=== PATIENT | male | born 1970 | race Hispanic/Latino ===

== ENCOUNTER 2021-12-29 11:42 | Emergency (ER) | payer MEDICARE ==
[2021-12-29 11:56] VITALS: BP 133/70
--- NOTE | 2021-12-29 16:17 | XRay Report ---
CHEST 2 VIEWS INDICATION / CLINICAL INFORMATION: Medical Clearance Psych. COMPARISON: None available. FINDINGS: SUPPORT DEVICES: Right Vas-Cath tip overlies the distal SVC HEART / MEDIASTINUM: No significant abnormality. LUNGS / PLEURA: No significant pulmonary or pleural abnormality. No pneumothorax. ADDITIONAL FINDINGS: No significant additional findings. IMPRESSION: 1. No acute findings. Signer Name: Franko Lambert MD Signed: 12/29/2021 4:11 PM Workstation Name: [id number]
--- NOTE | 2021-12-29 16:40 | Emergency Department Report ---
ED General Adult HPI - General Chief complaint: Medical Clearance Stated complaint: BACK PAIN/WOUND Time Seen by Provider: 12/29/21 15:48 Source: family Mode of arrival: Stretcher Limitations: Physical Limitation - History of Present Illness Initial comments: Mr. Peña is a 51-year-old male with history of multiple CVAs with the most recent being 6 months ago leaving him unable to walk presenting with complaint of worsening pain in his back from a pressure wound. States he developed the wound at the rehab facility and was was recently released from there a week and a half ago. He is also a dialysis patient and dialyzes Wednesday and Wednesday. States he was unable to go through with dialysis today due to severe pain. He is currently on tramadol at home which he states has not been controlling his pain. He denies fever, chills. -: This morning Location: back Radiation: non-radiation Severity scale (0 -10): 10 Quality: sharp Consistency: constant Improves with: none Worsens with: none Associated Symptoms: denies other symptoms Treatments Prior to Arrival: other (Tramadol) - Related Data Allergies Allergy/AdvReac Type Severity Reaction Status Date / Time Penicillins Allergy Unknown Verified 12/29/21 11:47 ED Review of Systems ROS: Stated complaint: BACK PAIN/WOUND Other details as noted in HPI ED Past Medical Hx - Past Medical History Hx CVA: Yes Hx Renal Disease: Yes ED Physical Exam - General Limitations: Physical Limitation General appearance: alert, in no apparent distress - Head Head exam: Present: atraumatic, normocephalic - Eye Eye exam: Present: normal appearance, PERRL, EOMI - Respiratory Respiratory exam: Present: normal lung sounds bilaterally. Absent: respiratory distress, wheezes - Cardiovascular Cardiovascular Exam: Present: regular rate, normal rhythm, normal heart sounds - GI/Abdominal GI/Abdominal exam: Present: soft. Absent: distended, tenderness - Rectal Rectal exam: Present: deferred - Back Exam Back exam: Present: other (7 to 8 cm healing sacral wound ) - Neurological Exam Neurological exam: Present: alert, oriented X3, CN II-XII intact - Psychiatric Psychiatric exam: Present: normal affect, normal mood - Skin Skin exam: Present: warm, dry, other (Sacral wound as noted above) ED Course Vital Signs 12/29/21 11:54 Temperature 98.7 F Pulse Rate 84 Respiratory 18 Rate Blood Pressure 133/70 [Left] O2 Sat by Pulse 97 Oximetry ED Medical Decision Making - Lab Data Result diagrams: 12/29/21 16:12 12/29/21 16:12 - Medical Decision Making Patient presenting with complaint of pain related to his sacral decubitus ulcer. He is afebrile. Laboratory evaluation today reveals normal white blood cell count and normal serum potassium. Vital signs are stable. He was given 4 mg of IM morphine. On reassessment he states his pain is resolved. He is stable for discharge home with return precautions. Critical care attestation.: If time is entered above; I have spent that time in minutes in the direct care of this critically ill patient, excluding procedure time. ED Disposition Clinical Impression: Sacral decubitus ulcer Disposition: 01 HOME / SELF CARE / HOMELESS Is pt being admited?: No Does the pt Need Aspirin: No Condition: Stable Instructions: Negative Pressure Wound Therapy Home Guide, Preventing Pressure Injuries Referrals: JD WAN MD [Primary Care Provider] - 3-5 Days Time of Disposition: 19:41 Print Language: LAO
[2021-12-29 16:50] LABS: Basophils % (Auto) 0.4 % (0.0-1.8); Eosinophils # (Auto) 0.1 K/mm3 (0.0-0.4); Eosinophils % (Auto) 1.1 % (0.0-4.3); Hematocrit 33.9 % (35.5-45.6); Hemoglobin 10.4 gm/dl (11.8-15.2); Lymphocytes # (Auto) 1.7 K/mm3 (1.2-5.4); Mean Corpuscular HGB Conc 31 % (32-34); Mean Corpuscular Volume 94 fl (84-94); Monocytes # (Auto) 0.5 K/mm3 (0.0-0.8); Monocytes % (Auto) 4.4 % (0.0-7.3); Platelet Count 266 K/mm3 (140-440); Red Cell Distribution Width 16.8 % (13.2-15.2)
[2021-12-29 17:01] LABS: INR 1.05 (0.87-1.13)
[2021-12-29 17:02] LABS: Partial Thromboplastin Time 38.5 Sec. (24.2-36.6)
[2021-12-29 17:06] LABS: Albumin 2.8 g/dL (3.9-5)
[2021-12-29] MEDS ORDERED: MORPHINE 4 MG/1 ML INJ IM ONE (18:10)
== END 2021-12-29 20:40 | disposition home or self-care (01) ==
LOC: ED 11:42
DX: L89.150 Pressure ulcer of sacral region, unstageable (principal)
CPT/HCPCS: 36415; 71046; 80053; 85025; 85610; 85730; 96372; 99284; J2270

== ENCOUNTER 2022-01-07 19:27 | Emergency (ER) | payer MEDICARE ==
[2022-01-07] MEDS ORDERED: HYDROcodone/ACETAMINOPHEN 10-325MG TAB PO ONE (20:47)
[2022-01-07 21:08] LABS: Basophils % (Auto) 0.5 % (0.0-1.8); Eosinophils # (Auto) 0.3 K/mm3 (0.0-0.4); Eosinophils % (Auto) 3.7 % (0.0-4.3); Hemoglobin 9.4 gm/dl (11.8-15.2); Lymphocytes # (Auto) 1.4 K/mm3 (1.2-5.4); Mean Corpuscular HGB Conc 31 % (32-34); Mean Corpuscular Volume 92 fl (84-94); Monocytes # (Auto) 0.3 K/mm3 (0.0-0.8); Monocytes % (Auto) 3.9 % (0.0-7.3); Platelet Count 208 K/mm3 (140-440); Red Blood Count 3.27 M/mm3 (3.65-5.03); Red Cell Distribution Width 16.7 % (13.2-15.2)
[2022-01-07 21:15] LABS: Calcium 8.6 mg/dL (8.4-10.2)
--- NOTE | 2022-01-07 21:17 | Emergency Department Report ---
HPI - General Chief Complaint: Hyperglycemia Time Seen by Provider: 01/07/22 20:17 - HPI HPI: Room 7 The patient is a 51-year-old male presenting with a chief complaint of hyperglycemia. The patient states earlier today he checked his blood sugar and it read "high." Patient states he has been compliant with all of his medications. Patient states just prior to arrival to the ED he rechecked his blood sugar and it read 326. When asked how he is feeling the patient replies he feels "pretty good." Of note the patient states he has missed his last 2 dialysis sessions secondary to inability to obtain a ride so last time he was dialyzed was 01/02/2022 ED Past Medical Hx - Past Medical History Previous Medical History?: Yes Hx CVA: Yes Hx Renal Disease: Yes - Surgical History Past Surgical History?: No - Family History Family history: no significant - Social History Smoking Status: Never Smoker Substance Use Type: None (Denies illicit drug use) - Medications Home Medications: Home Medications Medication Instructions Recorded Confirmed Last Taken Type traMADoL [Ultram] 50 mg PO Q6HR PRN #7 tablet 01/07/22 Unknown Rx ED Review of Systems ROS: Stated complaint: BLOOD SUGAR HIGH Other details as noted in HPI Constitutional: no symptoms reported Eyes: denies: eye pain ENT: denies: throat pain Respiratory: no symptoms reported Cardiovascular: denies: chest pain Endocrine: other (Hyperglycemia) Gastrointestinal: denies: abdominal pain Genitourinary: denies: dysuria Musculoskeletal: myalgia Neurological: denies: headache Physical Exam - Physical Exam Vital Signs: Vital Signs 01/07/22 01/07/22 19:28 20:35 Temperature 98.9 F Pulse Rate 84 96 H Respiratory 18 19 Rate Blood Pressure 172/89 Blood Pressure 144/78 [Left] O2 Sat by Pulse 98 99 Oximetry Physical Exam: GENERAL: The patient is well-developed well-nourished male lying on stretcher not appearing to be in acute distress. [] HEENT: Normocephalic. Atraumatic. Extraocular motions are intact. Patient has moist mucous membranes. NECK: Supple. Trachea midline CHEST/LUNGS: Clear to auscultation. There is no respiratory distress noted. HEART/CARDIOVASCULAR: Regular. There is no tachycardia. There is no gallop rub or murmur. ABDOMEN: Abdomen is soft, nontender. Patient has normal bowel sounds. There is no abdominal distention. SKIN: There is no diaphoresis. NEURO: The patient is awake, alert, and oriented. The patient is cooperative. The patient has normal speech. GCS 15 MUSCULOSKELETAL: There is no evidence of acute injury. ED Course Vital Signs 01/07/22 01/07/22 19:28 20:35 Temperature 98.9 F Pulse Rate 84 96 H Respiratory 18 19 Rate Blood Pressure 172/89 Blood Pressure 144/78 [Left] O2 Sat by Pulse 98 99 Oximetry ED Medical Decision Making - Lab Data Result diagrams: 01/07/22 20:38 01/07/22 20:38 Laboratory Tests 01/07/22 01/07/22 01/07/22 20:38 20:38 20:38 WBC 7.9 RBC 3.27 L Hgb 9.4 L Hct 30.0 L MCV 92 MCH 29 MCHC 31 L RDW 16.7 H Plt Count 208 Lymph % (Auto) 18.0 [place] % (Auto) 3.9 Eos % (Auto) 3.7 Baso % (Auto) 0.5 Lymph # (Auto) 1.4 [place] # (Auto) 0.3 Eos # (Auto) 0.3 Baso # (Auto) 0.0 Seg Neutrophils % 73.9 H Seg Neutrophils # 5.9 VBG pH 7.335 Sodium 141 Potassium 4.1 Chloride 103.5 Carbon Dioxide 21 L Anion Gap 21 BUN 75 H Creatinine 5.8 H Estimated GFR 10 BUN/Creatinine Ratio 13 Glucose 256 H Calcium 8.6 - Differential Diagnosis Hyperglycemia, DKA, hyperkalemia, uremia Critical care attestation.: If time is entered above; I have spent that time in minutes in the direct care of this critically ill patient, excluding procedure time. ED Disposition Clinical Impression: Hyperglycemia, Chronic leg pain Disposition: HOME / SELF CARE / HOMELESS Is pt being admited?: No Does the pt Need Aspirin: No Condition: Stable Additional Instructions: Return to the emergency department should you develop worsening symptoms, inability to tolerate food or liquids, high fever or any other concerns Prescriptions: traMADoL [Ultram] 50 mg PO Q6HR PRN #7 tablet PRN Reason: Pain Referrals: PRIMARY CARE, [Primary Care Provider] - [facility] Time of Disposition: 22:11
[2022-01-07 23:50] VITALS: BP 137/64
--- NOTE | 2022-01-08 10:34 | Electrocardiograph Report ---
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
== END 2022-01-07 23:45 | disposition home or self-care (01) ==
LOC: ED 19:27
DX: R73.9 Hyperglycemia, unspecified (principal); M79.606 Pain in leg, unspecified; Z86.73 Personal history of transient ischemic attack (TIA), and cerebral infarction without residual deficits
CPT/HCPCS: 36415; 80048; 82805; 82962; 85025; 93005; 99283

== ENCOUNTER 2022-01-18 14:07 | Inpatient (IN) | payer MEDICARE ==
[2022-01-18] MEDS ORDERED: NALOXONE 0.4 MG/1 ML INJ ONE (14:09)
[2022-01-18] MEDS ORDERED: NALOXONE 2 MG/2 ML INJ IV ONE (14:10)
[2022-01-18] MEDS ORDERED: SODIUM CHLORIDE 0.9% 1000 ML 1,000 ML IV ONE (14:10)
[2022-01-18 15:04] LABS: Basophils # (Auto) 0.1 K/mm3 (0.0-0.1); Basophils % (Auto) 0.6 % (0.0-1.8); Eosinophils # (Auto) 0.1 K/mm3 (0.0-0.4); Hematocrit 29.8 % (35.5-45.6); Hemoglobin 9.1 gm/dl (11.8-15.2); Lymphocytes # (Auto) 1.4 K/mm3 (1.2-5.4); Lymphocytes % (Auto) 10.2 % (13.4-35.0); Mean Corpuscular HGB Conc 31 % (32-34); Mean Corpuscular Volume 92 fl (84-94); Monocytes # (Auto) 0.9 K/mm3 (0.0-0.8); Monocytes % (Auto) 6.7 % (0.0-7.3); Platelet Count 397 K/mm3 (140-440); Red Blood Count 3.22 M/mm3 (3.65-5.03); Red Cell Distribution Width 16.2 % (13.2-15.2)
--- NOTE | 2022-01-18 15:22 | History and Physical Report ---
History of Present Illness Chief complaint: Unresponsive History of present illness: 51 YO Male with DM, ESRD on HD(M,W,F), CVA presents to ED for evaluation. Patient is confused and lethargic the time my evaluation is unable to provide detailed history. Patient history provided by EMS staff, ED staff, as well as the patient's who is at bedside and examined me. After arrival the patient was found to be confused and unresponsive this morning shortly after administration of his morning dose of insulin. EMS was notified and upon arrival the patient was found to be in distress and subsequently transported to [facility] for further care and evaluation of the aforementioned symptoms. The patient was seen and evaluated in the emergency department. All lab and imaging studies reviewed. Patient was found to have decreased responsiveness with aspirate in his oropharynx. Patient underwent chest rate and was found to have evidence of pneumonia suspected secondary to aspiration of gastric contents. Patient also found to be hyperglycemic, with metabolic encephalopathy, systemic inflammatory spine syndrome, metabolic acidosis, as well as clinical symptoms consistent with new onset CHF with decompensation. The patient was placed on supplemental oxygen with mild improvement in symptoms and was subsequently placed on BiPAP due to increased work of breathing combined with altered mental status. The patient was admitted to telemetry and initiated on CHF protocol as well as pneumonia protocol. No reports of fever, chills, chest pain, palpitation, adductive cough, trauma, skin rash, recent contact, known exposure to COVID-19. No prior admission for review. All medication listed at time of admission have been reconciled. Advanced care planning conducted in ED. Patient has diminished cognition at time of evaluation but has a positive gag reflex and is able to protect his airway without difficulty. Past History Past Medical History: diabetes, ESRD, stroke Past Surgical History: Other (Dialysis access) Social history: , lives with family Family history: diabetes, hypertension Medications and Allergies Allergies Allergy/AdvReac Type Severity Reaction Status Date / Time Penicillins Allergy Unknown Verified 12/29/21 11:47 Home Medications Medication Instructions Recorded Confirmed Last Taken Type traMADoL [Ultram] 50 mg PO Q6HR PRN #7 tablet 01/07/22 Unknown Rx Review of Systems ROS unobtainable: due to mental status Exam - Constitutional Vitals: Temp Pulse Resp BP Pulse Ox 97.4 F L 68 19 178/74 100 01/18/22 15:06 01/18/22 14:46 01/18/22 14:46 01/18/22 14:46 01/18/22 15:06 General appearance: Present: mild distress - EENT Eyes: Present: PERRL ENT: clear oral mucosa, hearing decreased - Neck Neck: Present: supple, normal ROM - Respiratory Respiratory effort: labored, accessory muscle use Respiratory: bilateral: diminished, rhonchi - Cardiovascular Rhythm: regular Heart Sounds: Present: S1 & S2 - Extremities Extremities: pulses symmetrical Extremity abnormal: edema Peripheral Pulses: within normal limits - Abdominal General gastrointestinal: Present: soft, non-tender, non-distended, normal bowel sounds Male genitourinary: Present: normal - Integumentary Integumentary: Present: clear, dry, clammy - Musculoskeletal Musculoskeletal: generalized weakness - Psychiatric Psychiatric: no appropriate mood/affect, no intact judgment & insight, no memory intact - Neurologic Neurologic: CNII-XII intact, no focal deficits, moves all extremities, no gait normal Results - Labs CBC & Chem 7: 01/18/22 14:35 01/18/22 14:35 Labs: Abnormal lab results 01/18/22 Range/Units 14:35 WBC 13.6 H (4.5-11.0) K/mm3 RBC 3.22 L (3.65-5.03) M/mm3 Hgb 9.1 L (11.8-15.2) gm/dl Hct 29.8 L (35.5-45.6) % MCHC 31 L (32-34) % RDW 16.2 H (13.2-15.2) % Lymph % (Auto) 10.2 L (13.4-35.0) % [place] # (Auto) 0.9 H (0.0-0.8) K/mm3 Seg Neutrophils % 81.5 H (40.0-70.0) % Seg Neutrophils # 11.1 H (1.8-7.7) K/mm3 Assessment and Plan - Patient Problems (1) Aspiration pneumonia Current Visit: Yes Status: Acute Plan to address problem: Pneumonia protocol: Chest x-ray, CBC, CMP, supplemental oxygen, pulse oximetry, nebulizer therapy, IV antibiotic therapy, blood culture. (2) End stage renal disease Current Visit: Yes Status: Acute Plan to address problem: Nephrology team consulted in ED, dialysis as per renal team. Monitor fluid balance, avoid nephrotoxic agents. (3) Metabolic encephalopathy Current Visit: Yes Status: Acute Plan to address problem: CT head, neuro check, supportive care. Aspiration precautions (4) SIRS (systemic inflammatory response syndrome) Current Visit: Yes Status: Acute Plan to address problem: Empiric IV antibiotic therapy, CBC, chest x-ray, urinalysis, IV antibiotic therapy. Repeat CBC in a.m. (5) Hypoglycemia Current Visit: Yes Status: Acute Plan to address problem: Dextrose, serial Accu-Chek, hypoglycemia protocol. (6) Metabolic acidosis Current Visit: Yes Status: Acute Plan to address problem: BNP, supportive care, repeat BMP in AM. (7) Acute decompensated heart failure Current Visit: Yes Status: Acute Plan to address problem: Strict I's/O, monitor urine output every shift, daily weight, afterload reduction, blood pressure control, diuretic therapy, monitor fluid balance, echocardiogram ordered and pending at time of admission. (8) DVT prophylaxis Current Visit: Yes Status: Acute Plan to address problem: SCD to bilateral lower extremities while in bed (9) Advance care planning Current Visit: Yes Status: Acute Plan to address problem: Disease education conducted, care plan discussed, diagnoses discussed, prognosis discussed, patient is full code. Patient knowledges understanding and agreement with care plan, +30 minutes.
[2022-01-18 15:24] LABS: INR 1.07 (0.87-1.13)
[2022-01-18 15:32] LABS: Alanine Aminotransferase 23 units/L (7-56); Albumin 3.1 g/dL (3.9-5); Blood Urea Nitrogen 44 mg/dL (9-20); Calcium 9.3 mg/dL (8.4-10.2); Hemolysis Index 1
[2022-01-18 15:36] LABS: BUN/Creatinine Ratio 10
[2022-01-18] MEDS ORDERED: DEXTROSE 50% IN WATER (25GM) 50 ML SYRINGE IV ONE (15:42)
[2022-01-18] MEDS: DEXTROSE 50% IN WATER (25GM) 50 ML SYRINGE IV ONE ×2 (15:43→17:43)
--- NOTE | 2022-01-18 16:14 | XRay Report ---
CHEST 1 VIEW 01/18/2022 3:03 PM INDICATION / CLINICAL INFORMATION: Dyspnea. COMPARISON: 12/29/2021 FINDINGS: SUPPORT DEVICES: Stable, satisfactory device positioning. HEART / MEDIASTINUM: Stable. LUNGS / PLEURA: Small layering left pleural effusion. Mild left basilar atelectasis. No pneumothorax. ADDITIONAL FINDINGS: No significant additional findings. IMPRESSION: 1. Small layering left pleural effusion. Signer Name: Fidel Bolaños MD Signed: 01/18/2022 4:09 PM Workstation Name: [id number]
--- NOTE | 2022-01-18 16:25 | Cat Scan Report ---
CT HEAD WITHOUT CONTRAST INDICATION / CLINICAL INFORMATION: AMS. TECHNIQUE: All CT scans at this location are performed using CT dose reduction for ALARA by means of automated exposure control. COMPARISON: None available. FINDINGS: There is no acute intracranial hemorrhage, mass effect, or edema. There is mild encephalomalacia jeremiah g an old right frontal approach ventriculostomy catheter. There are multiple tiny bilateral hypodensi ties in the basal ganglia compatible with chronic lacunar infarcts. No hydrocephalus. No extra-axial fluid collection. The lewis-white matter differentiation is preserved. There is moderate mucosal thickening in the maxillary sinuses, ethmoid air cells, and sphenoid sinuse s. No acute orbital abnormality. Calvarium is intact. IMPRESSION: 1. No CT evidence of acute abnormality. 2. Chronic findings as above. Signer Name: Fidel Bolaños MD Signed: 01/18/2022 4:21 PM Workstation Name: [id number]
--- NOTE | 2022-01-18 16:41 | Emergency Department Report ---
ED Altered Mental Status HPI - General Chief Complaint: Altered Mental Status Stated Complaint: AMS Time Seen by Provider: 01/18/22 14:10 Source: EMS Mode of arrival: Stretcher Limitations: Altered Mental Status - History of Present Illness Initial Comments: pt was brought in by EMS , he was found in the back of his van confused and unresponsive, BS was 80 by EMS, pt admit to drug use later on his came in and Per pt Pt had 495 BG this am and was given 15 units of Lantus, 25 units Novolog, then another 12 units of novolog today MD Complaint: altered mental status, decreased responsiveness -: hour(s) Severity: severe Consistency of Symptoms: constant Context: unknown Associated Symptoms: denies: denies other symptoms, chest pain, cough, diaphoresis, fever/chills, headaches - Related Data Previous Rx's Medication Instructions Recorded Last Taken Type traMADoL [Ultram] 50 mg PO Q6HR PRN #7 tablet 01/07/22 Unknown Rx Allergies Allergy/AdvReac Type Severity Reaction Status Date / Time Penicillins Allergy Unknown Verified 12/29/21 11:47 ED Review of Systems ROS: Stated complaint: AMS Other details as noted in HPI Comment: Unobtainable due to pts medical conditions Constitutional: denies: chills, fever Eyes: denies: eye pain, eye discharge, vision change ENT: denies: ear pain, throat pain Respiratory: denies: cough, shortness of breath, wheezing Cardiovascular: denies: chest pain, palpitations Endocrine: no symptoms reported Gastrointestinal: denies: abdominal pain, nausea, diarrhea Genitourinary: denies: urgency, dysuria Musculoskeletal: denies: back pain, joint swelling, arthralgia Skin: denies: rash, lesions Neurological: denies: headache, weakness, paresthesias Psychiatric: denies: anxiety, depression Hematological/Lymphatic: denies: easy bleeding, easy bruising ED Past Medical Hx - Past Medical History Previous Medical History?: Yes Hx CVA: Yes Hx Renal Disease: Yes - Social History Smoking Status: Unknown if ever smoked - Medications Home Medications: Home Medications Medication Instructions Recorded Confirmed Last Taken Type traMADoL [Ultram] 50 mg PO Q6HR PRN #7 tablet 01/07/22 Unknown Rx ED Physical Exam - General Limitations: Altered Mental Status General appearance: lethargic - Head Head exam: Present: atraumatic, normocephalic - ENT ENT exam: Present: mucous membranes moist - Neck Neck exam: Present: normal inspection - Respiratory Respiratory exam: Present: normal lung sounds bilaterally. Absent: respiratory distress - Cardiovascular Cardiovascular Exam: Present: normal rhythm, tachycardia. Absent: systolic murmur, diastolic murmur, rubs, gallop - GI/Abdominal GI/Abdominal exam: Present: soft, normal bowel sounds - Rectal Rectal exam: Present: deferred - Extremities Exam Extremities exam: Present: normal inspection - Back Exam Back exam: Present: normal inspection - Expanded Neurological Exam Expanded Patient oriented to: Absent: person, place Best Eye Response ([place]): (2) open to pain Best Motor Response ([place]): (4) withdraws to pain Best Verbal Response ([place]): (2) incomprehsible sounds [place] Total: 8 - Skin Skin exam: Present: warm, dry, intact, normal color. Absent: rash ED Course Vital Signs 01/18/22 01/18/22 01/18/22 14:39 14:46 15:06 Temperature 97.4 F L Pulse Rate 68 Respiratory 17 19 Rate Blood Pressure 178/74 O2 Sat by Pulse 100 100 Oximetry 01/18/22 01/18/22 01/18/22 15:24 15:30 15:45 Temperature Pulse Rate 69 68 65 Respiratory 15 21 11 L Rate Blood Pressure 145/74 145/74 O2 Sat by Pulse 99 100 100 Oximetry 01/18/22 01/18/22 01/18/22 16:01 16:12 16:15 Temperature Pulse Rate 71 61 Respiratory 13 15 Rate Blood Pressure 123/62 142/69 O2 Sat by Pulse 99 99 100 Oximetry - Lab Data Result diagrams: 01/18/22 14:35 01/18/22 14:35 Lab Results 01/18/22 01/18/22 01/18/22 Range/Units 14:35 14:35 14:35 WBC 13.6 H (4.5-11.0) K/mm3 RBC 3.22 L (3.65-5.03) M/mm3 Hgb 9.1 L (11.8-15.2) gm/dl Hct 29.8 L (35.5-45.6) % MCV 92 (84-94) fl MCH 28 (28-32) pg MCHC 31 L (32-34) % RDW 16.2 H (13.2-15.2) % Plt Count 397 (140-440) K/mm3 Lymph % (Auto) 10.2 L (13.4-35.0) % [place] % (Auto) 6.7 (0.0-7.3) % Eos % (Auto) 1.0 (0.0-4.3) % Baso % (Auto) 0.6 (0.0-1.8) % Lymph # (Auto) 1.4 (1.2-5.4) K/mm3 [place] # (Auto) 0.9 H (0.0-0.8) K/mm3 Eos # (Auto) 0.1 (0.0-0.4) K/mm3 Baso # (Auto) 0.1 (0.0-0.1) K/mm3 Seg Neutrophils % 81.5 H (40.0-70.0) % Seg Neutrophils # 11.1 H (1.8-7.7) K/mm3 PT 15.1 H (12.2-14.9) Sec. INR 1.07 (0.87-1.13) Sodium 144 (137-145) mmol/L Potassium 4.4 (3.6-5.0) mmol/L Chloride 107.5 H (98-107) mmol/L Carbon Dioxide 23 (22-30) mmol/L Anion Gap 18 mmol/L BUN 44 H (9-20) mg/dL Creatinine 4.6 H (0.8-1.3) mg/dL Estimated GFR 13 ml/min BUN/Creatinine Ratio 10 % Glucose 19 L* (75-100) mg/dL Lactic Acid (0.7-2.0) mmol/L Calcium 9.3 (8.4-10.2) mg/dL Total Bilirubin < 0.20 (0.1-1.2) mg/dL AST 35 (5-40) units/L ALT 23 (7-56) units/L Alkaline Phosphatase 196 H (35-129) units/L Ammonia (25-60) umol/L Total Creatine Kinase 102 (55-170) units/L Troponin T 0.410 H* (0.00-0.029) ng/mL NT-Pro-B Natriuret Pep (0-900) pg/mL Total Protein 6.1 L (6.3-8.2) g/dL Albumin 3.1 L (3.9-5) g/dL Albumin/Globulin Ratio 1.0 % Salicylates (2.8-20.0) mg/dL Acetaminophen (10.0-30.0) ug/mL Plasma/Serum Alcohol (0-0.07) % 01/18/22 01/18/22 01/18/22 Range/Units 14:35 14:35 14:35 WBC (4.5-11.0) K/mm3 RBC (3.65-5.03) M/mm3 Hgb (11.8-15.2) gm/dl Hct (35.5-45.6) % MCV (84-94) fl MCH (28-32) pg MCHC (32-34) % RDW (13.2-15.2) % Plt Count (140-440) K/mm3 Lymph % (Auto) (13.4-35.0) % [place] % (Auto) (0.0-7.3) % Eos % (Auto) (0.0-4.3) % Baso % (Auto) (0.0-1.8) % Lymph # (Auto) (1.2-5.4) K/mm3 [place] # (Auto) (0.0-0.8) K/mm3 Eos # (Auto) (0.0-0.4) K/mm3 Baso # (Auto) (0.0-0.1) K/mm3 Seg Neutrophils % (40.0-70.0) % Seg Neutrophils # (1.8-7.7) K/mm3 PT (12.2-14.9) Sec. INR (0.87-1.13) Sodium (137-145) mmol/L Potassium (3.6-5.0) mmol/L Chloride (98-107) mmol/L Carbon Dioxide (22-30) mmol/L Anion Gap mmol/L BUN (9-20) mg/dL Creatinine (0.8-1.3) mg/dL Estimated GFR ml/min BUN/Creatinine Ratio % Glucose (75-100) mg/dL Lactic Acid 1.20 (0.7-2.0) mmol/L Calcium (8.4-10.2) mg/dL Total Bilirubin (0.1-1.2) mg/dL AST (5-40) units/L ALT (7-56) units/L Alkaline Phosphatase (35-129) units/L Ammonia (25-60) umol/L Total Creatine Kinase (55-170) units/L Troponin T (0.00-0.029) ng/mL NT-Pro-B Natriuret Pep (0-900) pg/mL Total Protein (6.3-8.2) g/dL Albumin (3.9-5) g/dL Albumin/Globulin Ratio % Salicylates < 0.3 L (2.8-20.0) mg/dL Acetaminophen 5.0 L (10.0-30.0) ug/mL Plasma/Serum Alcohol (0-0.07) % 01/18/22 01/18/22 01/18/22 Range/Units 14:35 14:35 14:35 WBC (4.5-11.0) K/mm3 RBC (3.65-5.03) M/mm3 Hgb (11.8-15.2) gm/dl Hct (35.5-45.6) % MCV (84-94) fl MCH (28-32) pg MCHC (32-34) % RDW (13.2-15.2) % Plt Count (140-440) K/mm3 Lymph % (Auto) (13.4-35.0) % [place] % (Auto) (0.0-7.3) % Eos % (Auto) (0.0-4.3) % Baso % (Auto) (0.0-1.8) % Lymph # (Auto) (1.2-5.4) K/mm3 [place] # (Auto) (0.0-0.8) K/mm3 Eos # (Auto) (0.0-0.4) K/mm3 Baso # (Auto) (0.0-0.1) K/mm3 Seg Neutrophils % (40.0-70.0) % Seg Neutrophils # (1.8-7.7) K/mm3 PT (12.2-14.9) Sec. INR (0.87-1.13) Sodium (137-145) mmol/L Potassium (3.6-5.0) mmol/L Chloride (98-107) mmol/L Carbon Dioxide (22-30) mmol/L Anion Gap mmol/L BUN (9-20) mg/dL Creatinine (0.8-1.3) mg/dL Estimated GFR ml/min BUN/Creatinine Ratio % Glucose (75-100) mg/dL Lactic Acid (0.7-2.0) mmol/L Calcium (8.4-10.2) mg/dL Total Bilirubin (0.1-1.2) mg/dL AST (5-40) units/L ALT (7-56) units/L Alkaline Phosphatase (35-129) units/L Ammonia 30.0 (25-60) umol/L Total Creatine Kinase (55-170) units/L Troponin T (0.00-0.029) ng/mL NT-Pro-B Natriuret Pep 9594 H (0-900) pg/mL Total Protein (6.3-8.2) g/dL Albumin (3.9-5) g/dL Albumin/Globulin Ratio % Salicylates (2.8-20.0) mg/dL Acetaminophen (10.0-30.0) ug/mL Plasma/Serum Alcohol < 0.01 (0-0.07) % - EKG Data -: EKG Interpreted by Me EKG shows normal: sinus rhythm Rate: normal Interpretation: nonspecific ST-T wave brenda - Radiology Data Radiology results: report reviewed, image reviewed - Medical Decision Making head ct negative , BS was found to be 19 , D 50 given and imrpoved a lot willadmit for obs Critical care attestation.: If time is entered above; I have spent that time in minutes in the direct care of this critically ill patient, excluding procedure time. ED Disposition Clinical Impression: Altered mental status, Hypoglycemia, CRF (chronic renal failure) Disposition: ADMITTED INPATIENT Is pt being admited?: Yes Does the pt Need Aspirin: No Condition: Fair Referrals: JD WAN MD [Primary Care Provider] - 3-5 Days
[2022-01-18] MEDS ORDERED: ALBUTEROL 2.5 MG/3 ML NEBU IH PRN (16:46)
[2022-01-18] MEDS ORDERED: SODIUM CHLORIDE 0.9% 1000 ML 1,000 ML IV SCH (17:00)
[2022-01-18] MEDS: FUROSEMIDE 20 MG/2 ML INJ IV SCH (17:45)
[2022-01-18] MEDS ORDERED: ONDANSETRON 4 MG/2 ML INJ IV PRN (18:00)
[2022-01-18] MEDS ORDERED: ACETAMINOPHEN 325 MG TAB PO PRN (18:00)
[2022-01-18] MEDS ORDERED: DEXTROSE 50% IN WATER (25GM) 50 ML SYRINGE IV PRN (18:12)
[2022-01-18 18:18] LABS: Chol/HDL Ratio 2.18 %; HDL Cholesterol 38 mg/dL (40-59); LDL Cholesterol,Direct 30 mg/dL (50-130)
[2022-01-18 19:57] LABS: Bilirubin,Urine NEG (Negative); Blood,Urine SM (Negative); Color,Urine Straw (Yellow); Urobilinogen,Urine < 2.0 mg/dL (<2.0)
[2022-01-18 20:03] LABS: Amphetamine Screen,Urine PRESUMPTIVE NEGATIVE; Benzodiazepines Screen,Urine PRESUMPTIVE NEGATIVE; Cannabinoid Screen,Urine PRESUMPTIVE NEGATIVE; Cocaine Screen,Urine PRESUMPTIVE NEGATIVE; Methadone Screen,Urine PRESUMPTIVE NEGATIVE; Opiate Screen,Urine PRESUMPTIVE NEGATIVE
[2022-01-18] MEDS: HYDROmorphone 1 MG/1 ML INJ IV PRN (22:28)
[2022-01-19] MEDS: FUROSEMIDE 20 MG/2 ML INJ IV SCH ×2 (05:19→17:44)
--- NOTE | 2022-01-19 08:39 | Progress Note ---
Assessment and Plan Assessment and plan: #Acute metabolic encephalopathy CT head, neuro check, supportive care. Aspiration precautions #Symptomatic hypoglycemia, due to overmedication -BG 16, improved after being given dextrose containing IVF -per patient and he takes lantus 15U QAM and novolin PRN -novolin is over the counter and the give him anywhere from 10-20 units when his glucose is elevated -counseled and patient about proper use of novolin; declined new prescri ption due to cost -accuchecks + hypoglycemia protocol #SIRS (systemic inflammatory response syndrome) -likely secondary to hypoglycemia -HR improved, afebrile -blood cultures collected -d/c rocephijohn #End stage renal disease requiring HD -Plan for dialysis today -Avoid nephrotoxic agents and renally dose medications -Nephrology consulted, assistance appreciated #Normocytic anemia -will transfuse for Hgb less than 7 -continue epogen with dialysis -likely secondary to ESRD #NSTEMI type II -Troponin 0.410 -> 0.406 -no chest pain associated -echo as above -likely secondary to renal function -Cardiology consulted, assistance appreciated #Hyperkalemia -likely secondary to ESRD -will be corrected with K bath during dialysis today -will continue to monitor #Aspiration pneumonia-ruled out -no PNA noted on CXR, will discontinue abx #Metabolic acidosis -likely secondary to ESRD -will continue to monitor through BMP #Heart Failure with preserved ejection fraction -TTE: LVEF 45-50% with diastolic dysfunction -currently not in acute exacerbation -continue home medications, BP control #Advanced care planning -Disease education conducted, care plan discussed, diagnoses discussed, prognosis discussed, and patient acknowledges understanding with care plan -Time: +30 min History Interval history: Patient reports feeling weak but much better after his blood sugar has risen. He denies chest pain, shortness of breath, palpitations. He is currently in the process of moving out of state. He has no complaints at this time. Hospitalist Physical - Physical exam Narrative exam: GENERAL: Thin, malnourished male. In no acute distress. HEENT: Normocephalic. Atraumatic. NECK: Supple. CHEST/LUNGS: R chest permacath. CTAB on room air HEART/CARDIOVASCULAR: RRR. No murmur, rubs or gallops appreciated. ABDOMEN: +BS. NT/ND. SKIN: No rashes noted. NEURO: No focal motor deficit. Follows all commands. MUSCULOSKELETAL: No joint effusion EXTREMITIES: No cyanosis, clubbing or edema. PSYCH: Cooperative. - Constitutional Vitals: Temp Pulse Resp BP Pulse Ox 98.8 F 78 18 121/88 99 01/19/22 04:00 01/19/22 04:00 01/19/22 04:00 01/19/22 04:00 01/19/22 00:03 General appearance: Present: mild distress HEART Score - HEART Score Troponin: Troponin T 0.410 ng/mL (0.00-0.029) H* 01/18/22 14:35 Results - Labs CBC & Chem 7: 01/19/22 07:49 01/19/22 07:49 Labs: Laboratory Last Values WBC 13.6 K/mm3 (4.5-11.0) H 01/18/22 14:35 RBC 3.22 M/mm3 (3.65-5.03) L 01/18/22 14:35 Hgb 9.1 gm/dl (11.8-15.2) L 01/18/22 14:35 Hct 29.8 % (35.5-45.6) L 01/18/22 14:35 MCV 92 fl (84-94) 01/18/22 14:35 MCH 28 pg (28-32) 01/18/22 14:35 MCHC 31 % (32-34) L 01/18/22 14:35 RDW 16.2 % (13.2-15.2) H 01/18/22 14:35 Plt Count 397 K/mm3 (140-440) 01/18/22 14:35 Lymph % (Auto) 10.2 % (13.4-35.0) L 01/18/22 14:35 [place] % (Auto) 6.7 % (0.0-7.3) 01/18/22 14:35 Eos % (Auto) 1.0 % (0.0-4.3) 01/18/22 14:35 Baso % (Auto) 0.6 % (0.0-1.8) 01/18/22 14:35 Lymph # (Auto) 1.4 K/mm3 (1.2-5.4) 01/18/22 14:35 [place] # (Auto) 0.9 K/mm3 (0.0-0.8) H 01/18/22 14:35 Eos # (Auto) 0.1 K/mm3 (0.0-0.4) 01/18/22 14:35 Baso # (Auto) 0.1 K/mm3 (0.0-0.1) 01/18/22 14:35 Seg Neutrophils % 81.5 % (40.0-70.0) H 01/18/22 14:35 Seg Neutrophils # 11.1 K/mm3 (1.8-7.7) H 01/18/22 14:35 PT 15.1 Sec. (12.2-14.9) H 01/18/22 14:35 INR 1.07 (0.87-1.13) 01/18/22 14:35 Sodium 144 mmol/L (137-145) 01/18/22 14:35 Potassium 4.4 mmol/L (3.6-5.0) 01/18/22 14:35 Chloride 107.5 mmol/L (98-107) H 01/18/22 14:35 Carbon Dioxide 23 mmol/L (22-30) 01/18/22 14:35 Anion Gap 18 mmol/L 01/18/22 14:35 BUN 44 mg/dL (9-20) H 01/18/22 14:35 Creatinine 4.6 mg/dL (0.8-1.3) H 01/18/22 14:35 Estimated GFR 13 ml/min 01/18/22 14:35 BUN/Creatinine Ratio 10 % 01/18/22 14:35 Glucose 19 mg/dL (75-100) L* 01/18/22 14:35 POC Glucose 124 mg/dL (70-105) H 01/19/22 01:16 Ketones Quantitative Negative (Negative) 01/18/22 14:35 Lactic Acid 1.20 mmol/L (0.7-2.0) 01/18/22 14:35 Calcium 9.3 mg/dL (8.4-10.2) 01/18/22 14:35 Total Bilirubin < 0.20 mg/dL (0.1-1.2) 01/18/22 14:35 AST 35 units/L (5-40) 01/18/22 14:35 ALT 23 units/L (7-56) 01/18/22 14:35 Alkaline Phosphatase 196 units/L (35-129) H 01/18/22 14:35 Ammonia 30.0 umol/L (25-60) 01/18/22 14:35 Total Creatine Kinase 102 units/L (55-170) 01/18/22 14:35 Troponin T 0.410 ng/mL (0.00-0.029) H* 01/18/22 14:35 C-Reactive Protein 3.10 mg/dL (0.00-1.30) H 01/18/22 14:35 NT-Pro-B Natriuret Pep 9594 pg/mL (0-900) H 01/18/22 14:35 Total Protein 6.1 g/dL (6.3-8.2) L 01/18/22 14:35 Albumin 3.1 g/dL (3.9-5) L 01/18/22 14:35 Albumin/Globulin Ratio 1.0 % 01/18/22 14:35 Triglycerides 60 mg/dL (2-149) 01/18/22 14:35 Cholesterol 83 mg/dL (50-199) 01/18/22 14:35 LDL Cholesterol Direct 30 mg/dL (50-130) L 01/18/22 14:35 HDL Cholesterol 38 mg/dL (40-59) L 01/18/22 14:35 Cholesterol/HDL Ratio 2.18 % 01/18/22 14:35 Urine Color Straw (Yellow) 01/18/22 19:03 Urine Turbidity Clear (Clear) 01/18/22 19:03 Urine pH 9.0 (5.0-7.0) H 01/18/22 19:03 Ur Specific [place] 1.007 (1.003-1.030) 01/18/22 19:03 Urine Protein 100 mg/dl mg/dL (Negative) 01/18/22 19:03 Urine Glucose (UA) >=500 mg/dL (Negative) 01/18/22 19:03 Urine Ketones Neg mg/dL (Negative) 01/18/22 19:03 Urine Blood Sm (Negative) 01/18/22 19:03 Urine Nitrite Neg (Negative) 01/18/22 19:03 Urine Bilirubin Neg (Negative) 01/18/22 19:03 Urine Urobilinogen < 2.0 mg/dL (<2.0) 01/18/22 19:03 Ur Leukocyte Esterase Lg (Negative) 01/18/22 19:03 Urine WBC (Auto) 72.0 /HPF (0.0-6.0) H 01/18/22 19:03 Urine RBC (Auto) 9.0 /HPF (0.0-6.0) 01/18/22 19:03 Salicylates < 0.3 mg/dL (2.8-20.0) L 01/18/22 14:35 Urine Opiates Screen Presumptive negative 01/18/22 19:03 Urine Methadone Screen Presumptive negative 01/18/22 19:03 Acetaminophen 5.0 ug/mL (10.0-30.0) L 01/18/22 14:35 Ur Barbiturates Screen Presumptive negative 01/18/22 19:03 Ur Phencyclidine Scrn Presumptive negative 01/18/22 19:03 Ur Amphetamines Screen Presumptive negative 01/18/22 19:03 U Benzodiazepines Scrn Presumptive negative 01/18/22 19:03 Urine Cocaine Screen Presumptive negative 01/18/22 19:03 U Marijuana (THC) Screen Presumptive negative 01/18/22 19:03 Drugs of Abuse Note Disclamer 01/18/22 19:03 Plasma/Serum Alcohol < 0.01 % (0-0.07) 01/18/22 14:35 Microbiology: Microbiology 01/18/22 14:35 Peripheral/Venous Blood Culture - Preliminary Culture in Progress 01/18/22 14:35 Peripheral/Venous Blood Culture - Preliminary Culture in Progress Active Medications - Current Medications Current Medications: Generic Name Dose Route Start Last Admin Trade Name Gildardoq PRN Reason Stop Dose Admin Acetaminophen 650 mg 01/18/22 18:00 Acetaminophen 325 Mg Tab PO Q4H PRN Pain MILD(1-3)/Fever >100.5/WELLER Albuterol 2.5 mg 01/18/22 16:46 Albuterol 2.5 Mg/3 Ml Nebu IH Q4HRT PRN Shortness Of Breath Dextrose 50 ml 01/18/22 18:12 Dextrose 50% In Water (25gm) 50 Ml Syringe IV Q30MIN PRN Hypoglycemia Protocol Furosemide 20 mg 01/18/22 18:00 01/19/22 05:19 Furosemide 20 Mg/2 Ml Inj IV 20 mg BID@0600,1800 CHANDU Administration Hydromorphone HCl 0.5 mg 01/18/22 16:46 01/18/22 22:28 Hydromorphone 1 Mg/1 Ml Inj IV 0.5 mg Q23H PRN Administration Pain , Severe (7-10) Sodium Chloride 1,000 mls @ 100 mls/hr 01/18/22 17:00 Nacl 0.9% 1000 Ml IV DIRECT CHANDU Levofloxacin/Dextrose 500 mg in 100 mls @ 100 mls/hr 01/20/22 18:00 Levaquin 500mg/100ml IV Q48H CHANDU Ondansetron HCl 4 mg 01/18/22 18:00 01/18/22 17:46 Ondansetron 4 Mg/2 Ml Inj IV 4 mg Q8H PRN Administration Nausea And Vomiting Oxycodone/Acetaminophen 1 tab 01/18/22 16:46 Oxycodone /Acetaminophen 5-325mg Tab PO Q16H PRN Pain, Moderate (4-6) Sodium Chloride 10 ml 01/18/22 22:00 01/19/22 00:17 Sodium Chloride 0.9% 10 Ml Flush Syringe IV Not Given BID CHANDU Sodium Chloride 10 ml 01/18/22 16:46 Sodium Chloride 0.9% 10 Ml Flush Syringe IV PRN PRN LINE FLUSH
[2022-01-19 08:50] LABS: Basophils % (Auto) 0.7 % (0.0-1.8); Eosinophils % (Auto) 1.8 % (0.0-4.3); Hematocrit 26.2 % (35.5-45.6); Hemoglobin 8.1 gm/dl (11.8-15.2); Lymphocytes # (Auto) 1.7 K/mm3 (1.2-5.4); Lymphocytes % (Auto) 18.9 % (13.4-35.0); Mean Corpuscular HGB Conc 31 % (32-34); Mean Corpuscular Volume 92 fl (84-94); Platelet Count 238 K/mm3 (140-440); Red Blood Count 2.84 M/mm3 (3.65-5.03); Red Cell Distribution Width 15.9 % (13.2-15.2)
[2022-01-19 08:51] LABS: Basophils # (Auto) 0.1 K/mm3 (0.0-0.1); Eosinophils # (Auto) 0.2 K/mm3 (0.0-0.4); Monocytes # (Auto) 0.5 K/mm3 (0.0-0.8)
[2022-01-19 09:04] LABS: Calcium 8.7 mg/dL (8.4-10.2)
--- NOTE | 2022-01-19 10:19 | Consultation ---
History of Present Illness - Reason for Consult Consult date: 01/19/22 end stage renal disease Requesting physician: GAY ODONNELL - History of Present Illness This is a 51 yo M with past medical history of CVA, ESRD on HD on MWF schedule, who presents to ER with confusion, lethargy. As per EMS/ED records and as per pt's , pt developed changed mental status, and episode of unresponsiveness after after administration of his morning dose of insulin upon which EMS was called. in ER CXR showed small layering L pleural effusion, labs showed elevated trop > 0.4 x 2, elevated BUN/cr along with mild hyperkalemia, metabolic acidosis and hypoglycemia (serum glucose as low as 19). Patient was treated with D50, with improvement of FSG and mental status. Renal consult is requested for management of ESRD/HD. Past History Past Medical History: diabetes, ESRD, stroke Past Surgical History: Other (Dialysis access) Social history: , lives with family Family history: diabetes, hypertension Medications and Allergies Allergies Allergy/AdvReac Type Severity Reaction Status Date / Time Penicillins Allergy Unknown Verified 12/29/21 11:47 Active Meds: Active Medications Acetaminophen (Acetaminophen 325 Mg Tab) 650 mg PO Q4H PRN PRN Reason: Pain MILD(1-3)/Fever >100.5/WELLER Albuterol (Albuterol 2.5 Mg/3 Ml Nebu) 2.5 mg IH Q4HRT PRN PRN Reason: Shortness Of Breath Dextrose (Dextrose 50% In Water (25gm) 50 Ml Syringe) 50 ml IV Q30MIN PRN; Protocol PRN Reason: Hypoglycemia Furosemide (Furosemide 20 Mg/2 Ml Inj) 20 mg IV BID@0600,1800 CHANDU Last Admin: 01/19/22 05:19 Dose: 20 mg Hydromorphone HCl (Hydromorphone 1 Mg/1 Ml Inj) 0.5 mg IV Q23H PRN PRN Reason: Pain , Severe (7-10) Last Admin: 01/18/22 22:28 Dose: 0.5 mg Sodium Chloride (Nacl 0.9% 1000 Ml) 1,000 mls @ 100 mls/hr IV DIRECT CHANDU Levofloxacin/Dextrose (Levaquin 500mg/100ml) 500 mg in 100 mls @ 100 mls/hr IV Q48H CHANDU Ondansetron HCl (Ondansetron 4 Mg/2 Ml Inj) 4 mg IV Q8H PRN PRN Reason: Nausea And Vomiting Last Admin: 01/18/22 17:46 Dose: 4 mg Oxycodone/Acetaminophen (Oxycodone /Acetaminophen 5-325mg Tab) 1 tab PO Q16H PRN PRN Reason: Pain, Moderate (4-6) Sodium Chloride (Sodium Chloride 0.9% 10 Ml Flush Syringe) 10 ml IV BID REPLACED BY [facility] Last Admin: 01/19/22 00:17 Dose: Not Given Sodium Chloride (Sodium Chloride 0.9% 10 Ml Flush Syringe) 10 ml IV PRN PRN PRN Reason: LINE FLUSH Review of Systems All systems: negative Constitutional: fatigue, weakness, malaise, lethargy Neurological: confusion Exam - Vital Signs Vital signs: Vital Signs Resp 17 01/18/22 14:39 - General Appearance General appearance: well-developed, appears stated age EENT: ATNC, PERRL, mucous membranes moist Neck: Present: neck supple, Other (Rt chest ) Respiratory: Clear to Ascultation Heart: regular, S1S2 Gastrointestinal: Present: normoactive bowel sounds Integumentary: no rash, other (no edema ) Neurologic: no focal deficit, alert and oriented x3, strength 5/5, CN 3-12 intact Psychiatric: mood/affect appropriate, cooperative Results - Lab Results 01/19/22 07:49 01/19/22 07:49 Most recent lab results Calcium 8.7 mg/dL (8.4-10.2) 01/19/22 07:49 Assessment and Plan - Patient Problems (1) Altered mental status Current Visit: Yes Status: Acute Plan to address problem: likely secondary to hypoglycemia, mental status improved after treatment with D50 (2) Hypoglycemia Current Visit: Yes Status: Acute Plan to address problem: s/p treatment with Dextrose, on hypoglycemia protocol, serial ACCU check (3) Hyperkalemia Current Visit: Yes Status: Acute Plan to address problem: to be corrected with HD, cont 2g K renal diet (4) End stage renal disease Current Visit: Yes Status: Acute Plan to address problem: Arranged HD on MWF schedule via R permcath (5) Metabolic acidosis Current Visit: Yes Status: Acute Plan to address problem: to be corrected with HD
[2022-01-19] MEDS ORDERED: SODIUM CHLORIDE 0.9% 100 ML IV PRN (10:30)
--- NOTE | 2022-01-19 13:46 | Electrocardiograph Report ---
[facility] Test Date: 2022-01-18 Test Time: 15:28:06 Pat Name: JAMIE HURLEY Department: Room: A491 1 Gender: M [employer]: GAIL : 1970 Requested By: CAROLINA CORONEL Order Number: [id number] Reading MD: Vicky Braswell Measurements Intervals [place] Rate: 62 P: 38 SD: 151 QRS: -38 QRSD: 88 T: 63 QT: 431 QTc: 436 Interpretive Statements Sinus rhythm Incomplete right bundle branch block Consider old anterior infarct Compared to ECG 01/07/2022 19:42:01 No significant change Electronically Signed On 01-19-2022 13:45:55 EDT by Vicky Braswell
--- NOTE | 2022-01-19 16:25 | Consultation ---
History of Present Illness Consult date: 01/19/22 Requesting physician: GAY ODONNELL Consult reason: congestive heart failure History of present illness: Patient is 50-year-old male with a past medical history of CVA, end-stage renal disease on hemodialysis, hypertension, coronary artery disease s/p PCI who presents to the ED for a change in mental status which occurred yesterday following administration of insulin. Per conversation with patient and his patient was in normal state of health however she misunderstood the administration of his insulin and admitted to administer too much insulin resulting in patient becoming unresponsive. Patient was brought to the ED and treated with D50 with significant improvement in his mental status. Patient denies any cardiac complaints including chest pain, nausea, vomiting, diaphoresis, shortness of breath. Patient is previously unknown to our practice. Cardiology is consulted for CHF Past History Past Medical History: CAD, diabetes, ESRD, stroke Past Surgical History: Other (Dialysis access) Social history: , lives with family Family history: diabetes, hypertension Medications and Allergies Allergies Allergy/AdvReac Type Severity Reaction Status Date / Time Penicillins Allergy Unknown Verified 12/29/21 11:47 Active Meds: Active Medications Acetaminophen (Acetaminophen 325 Mg Tab) 650 mg PO Q4H PRN PRN Reason: Pain MILD(1-3)/Fever >100.5/WELLER Albuterol (Albuterol 2.5 Mg/3 Ml Nebu) 2.5 mg IH Q4HRT PRN PRN Reason: Shortness Of Breath Dextrose (Dextrose 50% In Water (25gm) 50 Ml Syringe) 50 ml IV Q30MIN PRN; Protocol PRN Reason: Hypoglycemia Furosemide (Furosemide 20 Mg/2 Ml Inj) 20 mg IV BID@0600,1800 CHANDU Last Admin: 01/19/22 05:19 Dose: 20 mg Hydromorphone HCl (Hydromorphone 1 Mg/1 Ml Inj) 0.5 mg IV Q23H PRN PRN Reason: Pain , Severe (7-10) Last Admin: 01/18/22 22:28 Dose: 0.5 mg Sodium Chloride (Nacl 0.9% 1000 Ml) 1,000 mls @ 100 mls/hr IV DIRECT CHANDU Sodium Chloride (Nacl 0.9%) 100 mls @ 999 mls/hr IV SOLITARIO PRN PRN Reason: Hypotension Ondansetron HCl (Ondansetron 4 Mg/2 Ml Inj) 4 mg IV Q8H PRN PRN Reason: Nausea And Vomiting Last Admin: 01/18/22 17:46 Dose: 4 mg Oxycodone/Acetaminophen (Oxycodone /Acetaminophen 5-325mg Tab) 1 tab PO Q16H PRN PRN Reason: Pain, Moderate (4-6) Sodium Chloride (Sodium Chloride 0.9% 10 Ml Flush Syringe) 10 ml IV BID CHANDU Last Admin: 01/19/22 00:17 Dose: Not Given Sodium Chloride (Sodium Chloride 0.9% 10 Ml Flush Syringe) 10 ml IV PRN PRN PRN Reason: LINE FLUSH Review of Systems Constitutional: other (AMS), no weight loss, no weight gain Ears, nose, mouth and throat: no sinus pressure, no sinus pain Cardiovascular: no chest pain, no orthopnea, no palpitations, no rapid/irregular heart beat, no edema, no shortness of breath, no dyspnea on exertion Respiratory: no shortness of breath, no dyspnea on exertion Gastrointestinal: no abdominal pain, no nausea, no vomiting Musculoskeletal: no neck stiffness, no neck pain, no shooting arm pain Integumentary: no rash, no pruritis, no redness Neurological: other (AMS), no head injury, no transient paralysis, no paralysis Psychiatric: no anxiety, no memory loss Endocrine: no cold intolerance, no heat intolerance Physical Examination Vital Signs Resp 17 01/18/22 14:39 General appearance: no acute distress HEENT: Positive: Normocephaly Neck: Positive: trachea midline Cardiac: Positive: Reg Rate and Rhythm Lungs: Positive: clear to auscultation, Normal Breath Sounds Neuro: Positive: Grossly Intact Abdomen: Positive: Soft, Active Bowel Sounds Skin: Negative: Rash, Suspicious Lesions, Ulceration Extremities: Present: upper extr. pulses, edema Results 01/19/22 07:49 01/19/22 07:49 Lipids 01/18/22 Range/Units 14:35 Triglycerides 60 (2-149) mg/dL Cholesterol 83 (50-199) mg/dL HDL Cholesterol 38 L (40-59) mg/dL Cholesterol/HDL Ratio 2.18 % CBC 01/19/22 Range/Units 07:49 WBC 8.8 (4.5-11.0) K/mm3 RBC 2.84 L (3.65-5.03) M/mm3 Hgb 8.1 L (11.8-15.2) gm/dl Hct 26.2 L (35.5-45.6) % Plt Count 238 (140-440) K/mm3 Lymph # (Auto) 1.7 (1.2-5.4) K/mm3 [place] # (Auto) 0.5 (0.0-0.8) K/mm3 Eos # (Auto) 0.2 (0.0-0.4) K/mm3 Baso # (Auto) 0.1 (0.0-0.1) K/mm3 Comprehensive Metabolic Panel 01/19/22 Range/Units 07:49 Sodium 142 (137-145) mmol/L Potassium 5.2 H (3.6-5.0) mmol/L Chloride 107.6 H (98-107) mmol/L Carbon Dioxide 20 L (22-30) mmol/L BUN 46 H (9-20) mg/dL Creatinine 4.9 H (0.8-1.3) mg/dL Glucose 70 L (75-100) mg/dL Calcium 8.7 (8.4-10.2) mg/dL - Imaging and Cardiology Echo: report reviewed EKG interpretations - Telemetry EKG Rhythm: Sinus Rhythm - EKG Sinus rhythms and dysrhythmias: sinus rhythm AV and intraventricular conduction: right bundle branch block Assessment and Plan Patient is 50-year-old male with a past medical history of CVA, end-stage renal disease on hemodialysis, hypertension, coronary artery disease s/p PCI who presents to the ED for a change in mental status which occurred yesterday following administration of insulin. AMS Hypoglycemia End-stage renal disease on hemodialysis-nephrology following HFrEF Coronary artery disease s/p PCI Hypertension Anemia Hyperkalemia Echo 01/18/2022-EF 45 to 50%. Mild diastolic dysfunction is present impaired rotation pattern. Right ventricular systolic function is mildly reduced Plan: Sinus rhythm 62 incomplete right bundle branch block. No acute ischemic changes. Patient chest pain-free Troponins noted to be elevated in setting of end-stage renal disease on hemodialysis and patient being severely hypoglycemic Patient remains chest pain-free BNP noted to be elevated however will defer volume management to nephrology due to renal function Echo results noted above Recommend outpatient ischemic eval Cardiac status otherwise stable we will see as needed Patient seen in conjunction with Dr. Carcamo who agrees with this plan of care - Patient Problems (1) CHF (congestive heart failure) Current Visit: Yes Status: Acute (2) Altered mental status Current Visit: Yes Status: Acute (3) End stage renal disease Current Visit: Yes Status: Acute (4) Hyperkalemia Current Visit: Yes Status: Acute (5) Hypoglycemia Current Visit: Yes Status: Acute (6) SIRS (systemic inflammatory response syndrome) Current Visit: Yes Status: Acute (7) Chronic leg pain Current Visit: No Status: Acute
[2022-01-19] MEDS: HYDROmorphone 1 MG/1 ML INJ IV PRN (23:17)
[2022-01-20] MEDS: FUROSEMIDE 20 MG/2 ML INJ IV SCH ×2 (06:42→17:31)
[2022-01-20 07:55] LABS: Calcium 8.3 mg/dL (8.4-10.2)
[2022-01-20] MEDS: INSULIN LISPRO 100 UNIT/ML SUB-Q SCH ×4 (08:54→21:52)
--- NOTE | 2022-01-20 10:24 | Electrocardiograph Report ---
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
--- NOTE | 2022-01-20 10:38 | Progress Note ---
Assessment and Plan - Patient Problems (1) Altered mental status Current Visit: Yes Status: Acute Plan to address problem: likely secondary to hypoglycemia, mental status improved after treatment with D50 (2) Hypoglycemia Current Visit: Yes Status: Acute Plan to address problem: s/p treatment with Dextrose, on hypoglycemia protocol, serial ACCU check (3) Hyperkalemia Current Visit: Yes Status: Acute Plan to address problem: corrected with HD, cont 2g K renal diet (4) End stage renal disease Current Visit: Yes Status: Acute Plan to address problem: Cont HD on MWF schedule via R permcath (5) Metabolic acidosis Current Visit: Yes Status: Acute Plan to address problem: corrected with HD Subjective Date of service: 01/20/22 Principal diagnosis: ESRD Interval history: Patient seen at bedside, awake, alert, in no acute distress Objective - Vital Signs Vital signs: Vital Signs - 12hr 01/19/22 01/20/22 01/20/22 23:28 04:00 08:13 Temperature 98.5 F 99.0 F 99.0 F Pulse Rate 95 H 83 77 Respiratory 18 16 18 Rate Blood Pressure 128/67 123/63 133/73 O2 Sat by Pulse 95 99 95 Oximetry 01/20/22 10:00 Temperature Pulse Rate Respiratory Rate Blood Pressure O2 Sat by Pulse 100 Oximetry - General Appearance General appearance: well-developed, appears stated age EENT: ATNC, PERRL, mucous membranes moist Neck: no JVD Respiratory: Present: Clear to Ascultation Cardiology: regular, S1S2 Gastrointestinal: normoactive bowel sounds Integumentary: no rash Neurologic: no focal deficit, alert and oriented x3, strength 5/5, CN 3-[address] Psychiatric: mood/affect appropriate, cooperative - Lab 01/19/22 07:49 01/20/22 07:05 Most recent lab results Calcium 8.3 mg/dL (8.4-10.2) L 01/20/22 07:05 Medications & Allergies - Medications Allergies/Adverse Reactions: Allergies Penicillins Allergy (Verified 12/29/21 11:47) Unknown Active Medications: Generic Name Dose Route Start Last Admin Trade Name Freq PRN Reason Stop Dose Admin Acetaminophen 650 mg 01/18/22 18:00 Acetaminophen 325 Mg Tab PO Q4H PRN Pain MILD(1-3)/Fever >100.5/WELLER Albuterol 2.5 mg 01/18/22 16:46 Albuterol 2.5 Mg/3 Ml Nebu IH Q4HRT PRN Shortness Of Breath Dextrose 50 ml 01/18/22 18:12 Dextrose 50% In Water (25gm) 50 Ml Syringe IV Q30MIN PRN Hypoglycemia Protocol Furosemide 20 mg 01/18/22 18:00 01/20/22 06:42 Furosemide 20 Mg/2 Ml Inj IV 20 mg BID@0600,1800 CHANDU Administration Hydromorphone HCl 0.5 mg 01/18/22 16:46 01/19/22 23:17 Hydromorphone 1 Mg/1 Ml Inj IV 0.5 mg Q23H PRN Administration Pain , Severe (7-10) Sodium Chloride 1,000 mls @ 100 mls/hr 01/18/22 17:00 Nacl 0.9% 1000 Ml IV DIRECT CHANDU Sodium Chloride 100 mls @ 999 mls/hr 01/19/22 10:30 Nacl 0.9% IV SOLITARIO PRN Hypotension Insulin Human Lispro 0 unit 01/20/22 07:30 01/20/22 08:54 Insulin Lispro 100 Unit/Ml SUB-Q 2 unit ACHS CHANDU Administration Protocol Ondansetron HCl 4 mg 01/18/22 18:00 01/18/22 17:46 Ondansetron 4 Mg/2 Ml Inj IV 4 mg Q8H PRN Administration Nausea And Vomiting Oxycodone/Acetaminophen 1 tab 01/18/22 16:46 Oxycodone /Acetaminophen 5-325mg Tab PO Q16H PRN Pain, Moderate (4-6) Sodium Chloride 10 ml 01/18/22 22:00 01/20/22 09:27 Sodium Chloride 0.9% 10 Ml Flush Syringe IV 10 ml BID CHANDU Administration Sodium Chloride 10 ml 01/18/22 16:46 Sodium Chloride 0.9% 10 Ml Flush Syringe IV PRN PRN LINE FLUSH
[2022-01-20 16:13] LABS: Hepatitis B Surface Antigen Non-Reactive (Negative); Hepatitis C Virus Antibody Non-Reactive (NonReactive)
[2022-01-20] MEDS ORDERED: DEXTROSE 50% IN WATER (25GM) 50 ML SYRINGE IV PRN (17:49)
--- NOTE | 2022-01-20 17:49 | Progress Note ---
Assessment and Plan Assessment and plan: #Acute metabolic encephalopathy-resolved CT head, neuro check, supportive care. 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 - hemoglobin A1c: unknown - home regimen: Lantus 15U qAM and Novolin prn - current regimen: Lantus 10U qAm and SSI - blood glucose goal 140-180 while inpatient -counseled and patient about proper use of novolin; declined new prescription due to cost - continue to monitor #SIRS (systemic inflammatory response syndrome) -likely secondary to hypoglycemia -HR improved, afebrile -blood cultures collected -d/c rocephin #End stage renal disease requiring HD -Received hemodialysis yesterday -Avoid nephrotoxic agents and renally dose medications -Nephrology consulted, assistance appreciated #Normocytic anemia -hemoglobin 8.1 -will transfuse for Hgb less than 7 -continue epogen with dialysis -likely secondary to ESRD #NSTEMI type II -Troponin 0.410 -> 0.406 -no chest pain associated -echo as above -likely secondary to renal function -Cardiology consulted, assistance appreciated #Hyperkalemia- resolved -likely secondary to ESRD -will be corrected with K bath during dialysis today -will continue to monitor #Aspiration pneumonia-ruled out -no PNA noted on CXR, will discontinue abx #Metabolic acidosis-resolved -likely secondary to ESRD -will continue to monitor through BMP #Heart Failure with preserved ejection fraction -TTE: LVEF 45-50% with diastolic dysfunction -currently not in acute exacerbation -continue home medications, BP control #Advanced care planning -Disease education conducted, care plan discussed, diagnoses discussed, prognosis discussed, and patient acknowledges understanding with care plan -Time: +30 min Disposition Plan: Continue medical management Total Time Spent with Patient (Minutes): 45 min History Interval history: No acute events overnight. Hospitalist Physical - Constitutional Vitals: Temp Pulse Resp BP Pulse Ox 99.1 F 81 18 129/71 99 01/20/22 15:29 01/20/22 15:29 01/20/22 15:29 01/20/22 15:29 01/20/22 15:29 General appearance: Present: no acute distress - EENT Eyes: Present: PERRL, EOM intact ENT: hearing intact, clear oral mucosa, dentition normal - Neck Neck: Present: supple, normal ROM, other (Permacath in R chest) - Respiratory Respiratory effort: normal Respiratory: bilateral: CTA - Cardiovascular Rhythm: regular Heart Sounds: Present: S1 & S2 - Extremities Extremities: no ischemia, pulses intact, pulses symmetrical, No edema, normal temperature, normal color Peripheral Pulses: within normal limits - Abdominal General gastrointestinal: soft, non-tender, non-distended, normal bowel sounds - Integumentary Integumentary: Present: clear, warm, dry - Psychiatric Psychiatric: appropriate mood/affect, intact judgment & insight, cooperative - Neurologic Neurologic: CNII-XII intact, moves all extremities - Allied Health Allied health notes reviewed: nursing HEART Score - HEART Score Troponin: Troponin T 0.406 ng/mL (0.00-0.029) H* 01/19/22 07:49 Results - Labs CBC & Chem 7: 01/19/22 07:49 01/20/22 07:05 Labs: Laboratory Last Values WBC 8.8 K/mm3 (4.5-11.0) 01/19/22 07:49 RBC 2.84 M/mm3 (3.65-5.03) L 01/19/22 07:49 Hgb 8.1 gm/dl (11.8-15.2) L 01/19/22 07:49 Hct 26.2 % (35.5-45.6) L 01/19/22 07:49 MCV 92 fl (84-94) 01/19/22 07:49 MCH 28 pg (28-32) 01/19/22 07:49 MCHC 31 % (32-34) L 01/19/22 07:49 RDW 15.9 % (13.2-15.2) H 01/19/22 07:49 Plt Count 238 K/mm3 (140-440) 01/19/22 07:49 Lymph % (Auto) 18.9 % (13.4-35.0) 01/19/22 07:49 [place] % (Auto) 6.0 % (0.0-7.3) 01/19/22 07:49 Eos % (Auto) 1.8 % (0.0-4.3) 01/19/22 07:49 Baso % (Auto) 0.7 % (0.0-1.8) 01/19/22 07:49 Lymph # (Auto) 1.7 K/mm3 (1.2-5.4) 01/19/22 07:49 [place] # (Auto) 0.5 K/mm3 (0.0-0.8) 01/19/22 07:49 Eos # (Auto) 0.2 K/mm3 (0.0-0.4) 01/19/22 07:49 Baso # (Auto) 0.1 K/mm3 (0.0-0.1) 01/19/22 07:49 Seg Neutrophils % 72.6 % (40.0-70.0) H 01/19/22 07:49 Seg Neutrophils # 6.4 K/mm3 (1.8-7.7) 01/19/22 07:49 PT 15.1 Sec. (12.2-14.9) H 01/18/22 14:35 INR 1.07 (0.87-1.13) 01/18/22 14:35 Sodium 141 mmol/L (137-145) 01/20/22 07:05 Potassium 4.5 mmol/L (3.6-5.0) 01/20/22 07:05 Chloride 104.0 mmol/L (98-107) 01/20/22 07:05 Carbon Dioxide 24 mmol/L (22-30) 01/20/22 07:05 Anion Gap 18 mmol/L 01/20/22 07:05 BUN 28 mg/dL (9-20) H 01/20/22 07:05 Creatinine 2.9 mg/dL (0.8-1.3) H 01/20/22 07:05 Estimated GFR 23 ml/min 01/20/22 07:05 BUN/Creatinine Ratio 10 % 01/20/22 07:05 Glucose 254 mg/dL (75-100) H 01/20/22 07:05 POC Glucose 165 mg/dL (70-105) H 01/20/22 15:28 Ketones Quantitative Negative (Negative) 01/18/22 14:35 Lactic Acid 1.20 mmol/L (0.7-2.0) 01/18/22 14:35 Calcium 8.3 mg/dL (8.4-10.2) L 01/20/22 07:05 Total Bilirubin < 0.20 mg/dL (0.1-1.2) 01/18/22 14:35 AST 35 units/L (5-40) 01/18/22 14:35 ALT 23 units/L (7-56) 01/18/22 14:35 Alkaline Phosphatase 196 units/L (35-129) H 01/18/22 14:35 Ammonia 30.0 umol/L (25-60) 01/18/22 14:35 Total Creatine Kinase 102 units/L (55-170) 01/18/22 14:35 Troponin T 0.406 ng/mL (0.00-0.029) H* 01/19/22 07:49 C-Reactive Protein 3.10 mg/dL (0.00-1.30) H 01/18/22 14:35 NT-Pro-B Natriuret Pep 9594 pg/mL (0-900) H 01/18/22 14:35 Total Protein 6.1 g/dL (6.3-8.2) L 01/18/22 14:35 Albumin 3.1 g/dL (3.9-5) L 01/18/22 14:35 Albumin/Globulin Ratio 1.0 % 01/18/22 14:35 Triglycerides 60 mg/dL (2-149) 01/18/22 14:35 Cholesterol 83 mg/dL (50-199) 01/18/22 14:35 LDL Cholesterol Direct 30 mg/dL (50-130) L 01/18/22 14:35 HDL Cholesterol 38 mg/dL (40-59) L 01/18/22 14:35 Cholesterol/HDL Ratio 2.18 % 01/18/22 14:35 Urine Color Straw (Yellow) 01/18/22 19:03 Urine Turbidity Clear (Clear) 01/18/22 19:03 Urine pH 9.0 (5.0-7.0) H 01/18/22 19:03 Ur Specific [place] 1.007 (1.003-1.030) 01/18/22 19:03 Urine Protein 100 mg/dl mg/dL (Negative) 01/18/22 19:03 Urine Glucose (UA) >=500 mg/dL (Negative) 01/18/22 19:03 Urine Ketones Neg mg/dL (Negative) 01/18/22 19:03 Urine Blood Sm (Negative) 01/18/22 19:03 Urine Nitrite Neg (Negative) 01/18/22 19:03 Urine Bilirubin Neg (Negative) 01/18/22 19:03 Urine Urobilinogen < 2.0 mg/dL (<2.0) 01/18/22 19:03 Ur Leukocyte Esterase Lg (Negative) 01/18/22 19:03 Urine WBC (Auto) 72.0 /HPF (0.0-6.0) H 01/18/22 19:03 Urine RBC (Auto) 9.0 /HPF (0.0-6.0) 01/18/22 19:03 Salicylates < 0.3 mg/dL (2.8-20.0) L 01/18/22 14:35 Urine Opiates Screen Presumptive negative 01/18/22 19:03 Urine Methadone Screen Presumptive negative 01/18/22 19:03 Acetaminophen 5.0 ug/mL (10.0-30.0) L 01/18/22 14:35 Ur Barbiturates Screen Presumptive negative 01/18/22 19:03 Ur Phencyclidine Scrn Presumptive negative 01/18/22 19:03 Ur Amphetamines Screen Presumptive negative 01/18/22 19:03 U Benzodiazepines Scrn Presumptive negative 01/18/22 19:03 Urine Cocaine Screen Presumptive negative 01/18/22 19:03 U Marijuana (THC) Screen Presumptive negative 01/18/22 19:03 Drugs of Abuse Note Disclamer 01/18/22 19:03 Plasma/Serum Alcohol < 0.01 % (0-0.07) 01/18/22 14:35 Hep Bs Antigen Non-reactive (Negative) 01/20/22 07:05 Hep B Core IgM Ab Non-reactive (NonReactive) 01/20/22 07:05 Hepatitis C Antibody Non-reactive (NonReactive) 01/20/22 07:05 Microbiology: Microbiology 01/18/22 14:35 Peripheral/Venous Blood Culture - Preliminary NO GROWTH AFTER 48 HOURS 01/18/22 14:35 Peripheral/Venous Blood Culture - Preliminary NO GROWTH AFTER 48 HOURS 01/18/22 19:03 Urine,Clean Catch Urine Culture - Preliminary NO GROWTH AFTER 24 HOURS Cook/IV: Voiding Method Indwelling Catheter Active Medications - Current Medications Current Medications: Generic Name Dose Route Start Last Admin Trade Name Freq PRN Reason Stop Dose Admin Acetaminophen 650 mg 01/18/22 18:00 Acetaminophen 325 Mg Tab PO Q4H PRN Pain MILD(1-3)/Fever >100.5/WELLER Albuterol 2.5 mg 01/18/22 16:46 Albuterol 2.5 Mg/3 Ml Nebu IH Q4HRT PRN Shortness Of Breath Dextrose 50 ml 01/18/22 18:12 Dextrose 50% In Water (25gm) 50 Ml Syringe IV Q30MIN PRN Hypoglycemia Protocol Furosemide 20 mg 01/18/22 18:00 01/20/22 17:31 Furosemide 20 Mg/2 Ml Inj IV 20 mg BID@0600,1800 CHANDU Administration Hydromorphone HCl 0.5 mg 01/18/22 16:46 01/19/22 23:17 Hydromorphone 1 Mg/1 Ml Inj IV 0.5 mg Q23H PRN Administration Pain , Severe (7-10) Sodium Chloride 1,000 mls @ 100 mls/hr 01/18/22 17:00 Nacl 0.9% 1000 Ml IV DIRECT CHANDU Sodium Chloride 100 mls @ 999 mls/hr 01/19/22 10:30 Nacl 0.9% IV SOLITARIO PRN Hypotension Insulin Human Lispro 0 unit 01/20/22 07:30 01/20/22 17:30 Insulin Lispro 100 Unit/Ml SUB-Q 1 unit ACHS CHANDU Administration Protocol Ondansetron HCl 4 mg 01/18/22 18:00 01/18/22 17:46 Ondansetron 4 Mg/2 Ml Inj IV 4 mg Q8H PRN Administration Nausea And Vomiting Oxycodone/Acetaminophen 1 tab 01/18/22 16:46 Oxycodone /Acetaminophen 5-325mg Tab PO Q16H PRN Pain, Moderate (4-6) Sodium Chloride 10 ml 01/18/22 22:00 01/20/22 09:27 Sodium Chloride 0.9% 10 Ml Flush Syringe IV 10 ml BID CHANDU Administration Sodium Chloride 10 ml 01/18/22 16:46 Sodium Chloride 0.9% 10 Ml Flush Syringe IV PRN PRN LINE FLUSH Nutrition/Malnutrition Assess - Dietary Evaluation Nutrition/Malnutrition Findings: Nutrition Notes Start: 01/19/22 11:14 Freq: Status: Active Protocol: Document 01/19/22 11:14 LUCIO (Rec: 01/19/22 11:39 LUCIO [id number]) Nutrition Notes Need for Assessment generated from: testing specialist,Education Initial or Follow up Assessment Current Diagnosis CKD (stage V CKD),Diabetes, Hypertension,Stroke Other Pertinent Diagnosis Metabolic Encephalopathy & Acidosis, ESRD+HG, Pneumonia, CHF, SIRS, ... Current Diet Renal Diet (since L 01/19). Labs/Tests 01/19: K 5.2, Cl 107.6, CO2 20 , BUN 46, Crea 4.9, Glu 70. Pertinent Medications 01/19: Nutritionally unremarkable. 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 Weight Status Appropriate Subjective/Other Information RD consult for skin risk and new onset diabetes assessments . No reports available on Pt's PO intake of meals at the time , will assess at F/U.Pt is on Nasal Cannula, O2 saturation @ 99%, according to Physical Assessment History notes. Pt has missing teeth, according to Physical Assessment History notes. Pt presents an unspecified area of concern on the sacral area, according to Physical Assessment History notes. Pt is not a new onset diabetes , is on ongoing isnulin theraphy at home, not a candidate for nutrition education. Pt lives at home with family. Percent of energy/protein needs met: Prescribed Renal Diet provides for energy/protein needs (2, 072 Kcal/77 g) during LOS. Burn Absent Trauma Absent GI Symptoms None Food Allergy No Skin Integrity/Comment Sacral area of concern. Minimum of two criteria No #1 Nutrition Diagnosis No nutrition diagnosis at this time Comments: Will assess Pt's PO intake of meals at F/U. Is patient on ventilator? No Is Patient Ambulatory and/or Out of Bed No REE-([facility]-confined to bed) 1823.184 Kcal/Kg value to use for calculation 29 Approximate Energy Requirements Using 1973 kcal/Kg Calculation Used for Recommendations Kcal/kg Additional Notes Protein: >1.2 g/Kg IBW; >88 g/ day. Fluids: 1 ml/Kcal, or as per MD. Nutrition Intervention Change Diet Order: Continue Renal Diet. Follow-Up By: 01/26/22 Additional Comments Sacral condition. Continue monitoring food tolerance, %PO intake of meals , and BM.
[2022-01-20] MEDS: oxyCODONE /ACETAMINOPHEN 5-325MG TAB PO PRN (19:16)
[2022-01-20] MEDS: HYDROmorphone 1 MG/1 ML INJ IV PRN (21:50)
[2022-01-21] MEDS: FUROSEMIDE 20 MG/2 ML INJ IV SCH (06:09)
[2022-01-21 06:16] LABS: Calcium 8.5 mg/dL (8.4-10.2)
--- NOTE | 2022-01-21 09:38 | Progress Note ---
Assessment and Plan - Patient Problems (1) End stage renal disease Current Visit: Yes Status: Acute Plan to address problem: Cont HD on MWF schedule via R permcath. stable for discharge from renal stand point after HD today (2) Hypoglycemia Current Visit: Yes Status: Acute Plan to address problem: s/p treatment with Dextrose, on hypoglycemia protocol, serial ACCU check (3) Altered mental status Current Visit: Yes Status: Acute Plan to address problem: likely secondary to hypoglycemia, mental status improved after treatment with D50 (4) Hyperkalemia Current Visit: Yes Status: Acute Plan to address problem: corrected with HD, cont 2g K renal diet (5) Metabolic acidosis Current Visit: Yes Status: Acute Plan to address problem: corrected with HD Subjective Date of service: 01/21/22 Principal diagnosis: ESRD Interval history: Patient seen at bedside, awake, alert, in no acute distress Objective - Vital Signs Vital signs: Vital Signs - 12hr 01/20/22 01/20/22 01/20/22 21:58 23:16 23:45 Temperature 98.4 F Pulse Rate 88 Respiratory 18 Rate Blood Pressure 101/55 O2 Sat by Pulse 98 100 97 Oximetry 01/21/22 01/21/22 04:19 08:40 Temperature 99.1 F 99.1 F Pulse Rate 77 78 Respiratory 16 18 Rate Blood Pressure 143/67 143/66 O2 Sat by Pulse 97 98 Oximetry - General Appearance General appearance: well-developed, well-nourished, appears stated age EENT: ATNC, PERRL, mucous membranes moist Neck: no JVD Respiratory: Present: Clear to Ascultation Cardiology: regular, S1S2 Gastrointestinal: normoactive bowel sounds Integumentary: no rash - Lab 01/19/22 07:49 01/21/22 05:38 Most recent lab results Calcium 8.5 mg/dL (8.4-10.2) 01/21/22 05:38 Medications & Allergies - Medications Allergies/Adverse Reactions: Allergies Penicillins Allergy (Verified 12/29/21 11:47) Unknown Home Medications: Home Medications Medication Instructions Recorded Confirmed Last Taken Type Apixaban 2.5 mg PO BID 01/20/22 01/20/22 Unknown History Aspirin [[place] Aspirin EC] 81 mg PO QHS 01/20/22 01/20/22 Unknown History Atorvastatin [Lipitor Tab] 40 mg PO QHS 01/20/22 01/20/22 Unknown History Calcium Acetate 1,334 mg PO TID 01/20/22 01/20/22 Unknown History Folic Acid 1 mg PO DAILY 01/20/22 01/20/22 Unknown History Gabapentin 100 mg PO PRN PRN 01/20/22 01/20/22 01/13/22 History Insulin Detemir [Levemir] 100 unit SQ DAILY 01/20/22 01/20/22 Unknown History Losartan 25 mg PO QHS 01/20/22 01/20/22 Unknown History Novolin R 100 units SUB-Q DAILY 01/20/22 01/20/22 Unknown History Active Medications: Generic Name Dose Route Start Last Admin Trade Name Freq PRN Reason Stop Dose Admin Acetaminophen 650 mg 01/18/22 18:00 Acetaminophen 325 Mg Tab PO Q4H PRN Pain MILD(1-3)/Fever >100.5/WELLER Albuterol 2.5 mg 01/18/22 16:46 Albuterol 2.5 Mg/3 Ml Nebu IH Q4HRT PRN Shortness Of Breath Dextrose 50 ml 01/20/22 17:49 Dextrose 50% In Water (25gm) 50 Ml Syringe IV Q30MIN PRN Hypoglycemia Protocol Furosemide 40 mg 01/21/22 18:00 Furosemide 40 Mg Tab PO 0600,1800 CHANDU Hydromorphone HCl 0.5 mg 01/18/22 16:46 01/20/22 21:50 Hydromorphone 1 Mg/1 Ml Inj IV 0.5 mg Q23H PRN Administration Pain , Severe (7-10) Sodium Chloride 100 mls @ 999 mls/hr 01/19/22 10:30 Nacl 0.9% IV SOLITARIO PRN Hypotension Insulin Glargine 10 units 01/21/22 10:00 01/21/22 09:10 Insulin Glargine 100 Units/Ml SUB-Q 10 units QAM CHANDU Administration Insulin Human Regular 5 units 01/21/22 11:30 Insulin Regular, Human 100 Units/1 Ml SUB-Q ACHS CHANDU Ondansetron HCl 4 mg 01/18/22 18:00 01/18/22 17:46 Ondansetron 4 Mg/2 Ml Inj IV 4 mg Q8H PRN Administration Nausea And Vomiting Oxycodone/Acetaminophen 1 tab 01/18/22 16:46 01/20/22 19:16 Oxycodone /Acetaminophen 5-325mg Tab PO 1 tab Q16H PRN Administration Pain, Moderate (4-6) Sodium Chloride 10 ml 01/18/22 22:00 01/21/22 09:11 Sodium Chloride 0.9% 10 Ml Flush Syringe IV 10 ml BID CHANDU Administration Sodium Chloride 10 ml 01/18/22 16:46 Sodium Chloride 0.9% 10 Ml Flush Syringe IV PRN PRN LINE FLUSH
[2022-01-21] MEDS ORDERED: INSULIN GLARGINE 100 UNITS/ML SUB-Q SCH (10:00)
[2022-01-21] MEDS: oxyCODONE /ACETAMINOPHEN 5-325MG TAB PO PRN (10:16)
[2022-01-21] MEDS ORDERED: INSULIN REGULAR, HUMAN 100 UNITS/1 ML SUB-Q SCH (11:30)
--- NOTE | 2022-01-21 12:26 | Discharge Summary ---
Providers - Providers Date of Admission: 01/18/22 18:17 Date of discharge: 01/21/22 Attending physician: SEBASTIAN LOFTON MD 01/18/22 17:06 Consult to Cardiology [CONS] Routine Consulting Provider: ALEXUS ANG Reason For Exam: chf 01/18/22 18:10 Consult to Physician [CONS] Routine Comment: Consulting Provider: PRANEETH BEGUM Physician Instructions: Reason For Exam: esrd Primary care physician: JD WAN Hospitalization Reason for admission: Symptomatic hypoglycemia, acute metabolic encephalopathy Condition: Fair Pertinent studies: Reviewed. Procedures: None. Hospital course: Patient is a 51-year-old male past medical history of ESRD on hemodialysis (Wednesday, Wednesday, Wednesday), history of prior stroke, insulin-dependent type 2 diabetes mellitus, history of stroke, and limited mobility who presented with confusion and altered mental status secondary to accidental overmedication with insulin at home in an attempt to better control his hyperglycemia. The patient was brought via EMS and required D50 for blood glucose of less than 40. Patient was initiated on IV antibiotics due to concern for possible aspiration pneumonia, which was essentially ruled out and antibiotics were discontinued. The patient was found to have an elevated proBNP of 9594, and cardiology was consulted for further management. Nephrology was also consulted for management of his ESRD. Patient underwent CT head noncontrast that was unremarkable. Patient's hypoglycemia eventually resolved and he was allowed mild hyperglycemia. The patient's volume status resolved with hemodialysis. He underwent TTE (01/18/2022) that revealed an EF of 45-50% with mild diastolic dysfunction and a mildly reduced RV systolic function. The patient at that time was found to be euvolemic. He was recommended to continue with his goal- directed therapy; however, they also recommended outpatient ischemic evaluation. This was discussed with the patient, and he expresses understanding. The patient and his were counseled on insulin administration, and they both expressed understanding. The patient is medically clear for discharge. Disposition: HOME / SELF CARE / HOMELESS Final Discharge Diagnosis (Prints w/discharge instructions): Symptomatic hypoglycemia due to overmedication, insulin-dependent type 2 diabetes mellitus with hyperglycemia, acute metabolic encephalopathy, ESRD requiring hemodialysis, normocytic anemia/anemia of chronic disease, NSTEMI type II, hyperkalemia, metabolic acidosis, acute diastolic heart failure, SIRS, moderate protein caloric malnutrition Time spent for discharge: 45 min Core Measure Documentation - Palliative Care Palliative Care/ Comfort Measures: Not Applicable - Core Measures Any of the following diagnoses?: none Exam - Constitutional Vitals: Temp Pulse Resp BP Pulse Ox 98.9 F 76 18 94/48 96 01/21/22 11:08 01/21/22 12:15 01/21/22 11:08 01/21/22 12:15 01/21/22 11:08 General appearance: Present: no acute distress, cachectic - EENT Eyes: Present: PERRL, EOM intact ENT: hearing intact, clear oral mucosa, dentition normal - Neck Neck: Present: supple, normal ROM - Respiratory Respiratory effort: normal, other (Permacath in right upper chest) Respiratory: bilateral: CTA - Cardiovascular Rhythm: regular Heart Sounds: Present: S1 & S2 - Extremities Extremities: no ischemia, pulses intact, pulses symmetrical, No edema, normal temperature, normal color Peripheral Pulses: within normal limits - Abdominal General gastrointestinal: Present: soft, non-tender, non-distended, normal bowel sounds Male genitourinary: Present: deferred - Rectal Rectal Exam: deferred - Integumentary Integumentary: Present: clear, warm, dry - Musculoskeletal Musculoskeletal: strength equal bilaterally - Psychiatric Psychiatric: appropriate mood/affect, intact judgment & insight, memory intact, cooperative - Neurologic Neurologic: CNII-XII intact, moves all extremities - Allied Health Allied health notes reviewed: nursing Plan Activity: no restrictions Diet: diabetic, renal Additional Instructions: Patient is a 51-year-old male past medical history of ESRD on hemodialysis (Wednesday, Wednesday, Wednesday), history of prior stroke, insulin-dependent type 2 diabetes mellitus, history of stroke, and limited mobility who presented with confusion and altered mental status secondary to accidental overmedication with insulin at home in an attempt to better control his hyperglycemia. The patient was brought via EMS and required D50 for blood glucose of less than 40. Patient was initiated on IV antibiotics due to concern for possible aspiration pneumonia, which was essentially ruled out and antibiotics were discontinued. The patient was found to have an elevated proBNP of 9594, and cardiology was consulted for further management. Nephrology was also consulted for management of his ESRD. Patient underwent CT head n oncontrast that was unremarkable. Patient's hypoglycemia eventually resolved and he was allowed mild hyperglycemia. The patient's volume status resolved with hemodialysis. He underwent TTE (01/18/2022) that revealed an EF of 45-50% with mild diastolic dysfunction and a mildly reduced RV systolic function. The patient at that time was found to be euvolemic. He was recommended to continue with his goal-directed therapy; however, they also recommended outpatient ischemic evaluation. This was discussed with the patient, and he expresses understanding. The patient and his were counseled on insulin administration, and they both expressed understanding. The patient is medically clear for discharge. Care Plan Goals: Here is how to give yourself Novolin in the future prior to meals: Fingerstick Blood Glucose if 150-199 mg/dl give 2-3 units of novolin if 200-249 mg/dl give 3-4 units if 250-299 mg/dl give 4 units if 300-349 mg/dl give 6 units if >349 mg/dl give 8 units Assessment: Patient is a 51-year-old male past medical history of ESRD on hemodialysis (Wednesday, Wednesday, Wednesday), history of prior stroke, insulin-dependent type 2 diabetes mellitus, history of stroke, and limited mobility who presented with confusion and altered mental status secondary to accidental overmedication with insulin at home in an attempt to better control his hyperglycemia. The patient was brought via EMS and required D50 for blood glucose of less than 40. Patient was initiated on IV antibiotics due to concern for possible aspiration pneumonia, which was essentially ruled out and antibiotics were discontinued. The patient was found to have an elevated proBNP of 9594, and cardiology was consulted for further management. Nephrology was also consulted for management of his ESRD. Patient underwent CT head noncontrast that was unremarkable. Patient's hypoglycemia eventually resolved and he was allowed mild hypergly cemia. The patient's volume status resolved with hemodialysis. He underwent TTE (01/18/2022) that revealed an EF of 45-50% with mild diastolic dysfunction and a mildly reduced RV systolic function. The patient at that time was found to be euvolemic. He was recommended to continue with his goal-directed therapy; however, they also recommended outpatient ischemic evaluation. This was discussed with the patient, and he expresses understanding. The patient and his were counseled on insulin administration, and they both expressed understanding. The patient is medically clear for discharge. Follow up with: JD WAN MD [Primary Care Provider] - 3-5 Days Prescriptions: Aspirin [[place] Aspirin EC] 81 mg PO QHS #30 tab Apixaban 2.5 mg PO BID #60 Calcium Acetate 1,334 mg PO TID #90 tab Folic Acid 1 mg PO DAILY #30 tab Gabapentin 100 mg PO PRN PRN #30 cap PRN Reason: Pain, Moderate (4-6) Insulin Regular, Human [HumuLIN R] 5 units SUB-Q ACHS #1 vial Insulin Glargine [Lantus VIAL] 10 units SUB-Q QAM #1 vial Furosemide [Lasix TAB] 40 mg PO 0600,1800 #60 tablet
[2022-01-21] MEDS ORDERED: APIXABAN 2.5 MG TAB PO ONE (12:27)
[2022-01-21 16:04] VITALS: BP 149/69
[2022-01-21] MEDS ORDERED: FUROSEMIDE 40 MG TAB PO SCH (18:00)
== END 2022-01-21 17:59 | disposition home or self-care (01) | DRG 280 ==
LOC: ED 14:07 → 4A 18:17
PROVIDERS: ADMIT Internal Medicine; ATTEND Student in an Organized Health Care Education/Training Program
PROC: 5A1D70Z Performance of Urinary Filtration, Intermittent, Less than 6 Hours Per Day (ICD-10-PCS; principal; 2022-01-19)
PROC: 5A1D70Z Performance of Urinary Filtration, Intermittent, Less than 6 Hours Per Day (ICD-10-PCS; 2022-01-21)
DX: I13.2 Hypertensive heart and chronic kidney disease with heart failure and with stage 5 chronic kidney disease, or end stage renal disease (principal); G93.41 Metabolic encephalopathy; I21.A1 Myocardial infarction type 2; I50.31 Acute diastolic (congestive) heart failure; N18.6 End stage renal disease; R65.10 Systemic inflammatory response syndrome (SIRS) of non-infectious origin without acute organ dysfunction; E87.2 Acidosis; E44.0 Moderate protein-calorie malnutrition; E11.649 Type 2 diabetes mellitus with hypoglycemia without coma; E87.5 Hyperkalemia; T38.3X5A Adverse effect of insulin and oral hypoglycemic [antidiabetic] drugs, initial encounter; Y92.89 Other specified places as the place of occurrence of the external cause; D64.9 Anemia, unspecified; I25.10 Atherosclerotic heart disease of native coronary artery without angina pectoris; Z68.22 Body mass index [BMI] 22.0-22.9, adult; Z88.0 Allergy status to penicillin; Z91.018 Allergy to other foods; Z86.73 Personal history of transient ischemic attack (TIA), and cerebral infarction without residual deficits; Z83.3 Family history of diabetes mellitus; Z82.49 Family history of ischemic heart disease and other diseases of the circulatory system
CPT/HCPCS: 36415; 70450; 71045; 80048; 80053; 80061; 80074; 80307; 80320; 81001; 82010; 82140; 82550; 82962; 83880; 84484; 85025; 85610; 86140; 87040; 87086; 93005; 93306; 94760; 96374; 96375; G0378; J3490; Q9967; C8929; G0480; J1170; J1815; J1940; J1956; J2310; J2405; J7030